=== PATIENT | male | born 1995 | race Caucasian/White ===

== ENCOUNTER 2016-06-25 00:38 | Emergency (ER) | payer BC ==
[~2016-06-25] VITALS: Ht 175.3 cm; Wt 68.2 kg
[2016-06-25 00:41] VITALS: BP 175/93
[2016-06-25] MEDS ORDERED: VYVANSE50 MG PO (00:49)
[2016-06-25] MEDS ORDERED: ZOLOFT 50MG50 MG PO (00:49)
[2016-06-25] MEDS ORDERED: ADDERALL10 MG PO (00:50)
[2016-06-25 02:08] VITALS: PULSE 95; TEMP 97.7
== END 2016-06-25 02:08 | disposition home or self-care (01) ==
LOC: COL.ER 00:38
DX: S02.2XXA Fracture of nasal bones, initial encounter for closed fracture (principal); S02.5XXA Fracture of tooth (traumatic), initial encounter for closed fracture; Y04.2XXA Assault by strike against or bumped into by another person, initial encounter; Y92.009 Unspecified place in unspecified non-institutional (private) residence as the place of occurrence of the external cause; K08.89 Other specified disorders of teeth and supporting structures